=== PATIENT | male | born 1970 | race Caucasian/White ===

== ENCOUNTER 2019-08-12 11:13 | Inpatient (IN) | payer OTHER ==
[~2019-08-12] VITALS: Ht 180.3 cm; Wt 107.5 kg
[2019-08-12 11:13] VITALS: BP_SYST 140
[2019-08-12] MEDS ORDERED: KETOROLAC TROMETHAMINE 30 MG VIAL IVP ONE (11:30)
[2019-08-12] MEDS ORDERED: NACL 0.9% 1,000 ML IV ONE (11:30)
[2019-08-12] MEDS ORDERED: ONDANSETRON HCL 4 MG/2 ML VIAL IVP ONE (12:00)
[2019-08-12] MEDS ORDERED: MORPHINE 4 MG/ML INJ. SYRINGE IVP ONE ×2 (12:00→12:45)
[2019-08-12 12:15] LABS: BASOPHILS % (AUTO) 0.2 % (0.0-2.0); EOSINOPHILS # (AUTO) 0.1 K/uL (0.0-0.4); EOSINOPHILS % (AUTO) 1.1 % (0.0-4.0); HEMATOCRIT 40.5 % (36-54); HEMOGLOBIN 13.7 g/dL (14.0-18.0); LYMPHOCYTES # (AUTO) 1.8 K/uL (1.0-5.5); MEAN CORPUSCULAR HEMOGLOBIN 34 pg (27-31); MEAN CORPUSCULAR HGB CONC 34 % (32-36); MEAN CORPUSCULAR VOLUME 100 fL (79.0-98.0); MONOCYTES # (AUTO) 0.8 K/uL (0.0-1.0); NEUTROPHILS # (AUTO) 3.7 K/uL (1.8-7.7); NEUTROPHILS % (AUTO) 57.7 % (40.0-70.0); PLATELET COUNT (AUTO) 103 K/uL (130-430); RED BLOOD CELL COUNT(AUTO) 4.07 MIL/uL (4.2-6.2); RED CELL DISTRIBUTION WIDTH 13.6 % (9.0-15.0); WHITE BLOOD COUNT (AUTO) 6.4 K/uL (4.8-10.8)
[2019-08-12 12:36] LABS: CALCIUM 8.6 mg/dL (8.4-11.0); CREATININE 1.03 mg/dL (0.55-1.30); POTASSIUM 4.1 mmol/L (3.5-5.1)
[2019-08-12 12:40] LABS: ALBUMIN 3.6 g/dL (3.4-4.8); TOTAL BILIRUBIN 0.6 mg/dL (0.0-1.0)
[2019-08-12] MEDS ORDERED: KETOROLAC TROMETHAMINE 15 MG VIAL IVP ONE (12:45)
[2019-08-12] MEDS ORDERED: NACL 0.9% 1,000 ML IV SCH (14:00)
[2019-08-12] MEDS ORDERED: MORPHINE 4 MG/ML INJ. SYRINGE IVP PRN (14:00)
[2019-08-12] MEDS ORDERED: MUPIROCIN 2% TOPICAL OINTMENT 22 GM NS PRN (14:45)
[2019-08-12] MEDS ORDERED: LORazepam 2 MG/ML VIAL IVP PRN (14:45)
[2019-08-12] MEDS ORDERED: MORPHINE 2 MG/ML INJ. SYRINGE IVP PRN (14:45)
[2019-08-12] MEDS ORDERED: ZOLPIDEM TARTRATE 5 MG TABLET PO PRN (14:45)
[2019-08-12] MEDS ORDERED: ACETAMINOPHEN 325 MG TABLET PO PRN (14:45)
[2019-08-12] MEDS ORDERED: MAGNESIUM SULFATE 50 ML IV PRN (14:45)
[2019-08-12] MEDS ORDERED: POTASSIUM CHLORIDE 20 MEQ TAB.PRT.SR PO PRN (14:45)
[2019-08-12] MEDS ORDERED: ONDANSETRON HCL 4 MG/2 ML VIAL IVP PRN (14:45)
[2019-08-12] MEDS ORDERED: DOCUSATE SODIUM 100 MG CAPSULE PO PRN (14:45)
[2019-08-12] MEDS ORDERED: KETOROLAC TROMETHAMINE 15 MG VIAL IVP PRN (14:45)
[2019-08-12] MEDS ORDERED: FAMO40TA7 PO (14:48)
[2019-08-12 16:30] VITALS: BP_SYST 121
[2019-08-12] MEDS: MORPHINE 2 MG/ML INJ. SYRINGE IVP PRN (16:39)
[2019-08-12 20:00] VITALS: BP_SYST 140
[2019-08-12] MEDS: TAMSULOSIN HCL 0.4 MG CAP PO SCH (21:00)
[2019-08-12] MEDS: HEPARIN SODIUM,PORCINE 5000 UNITS/ML VIAL SUBCUT SCH (21:00)
[2019-08-13] VITALS: BP_SYST 130
[2019-08-13] MEDS: MORPHINE 2 MG/ML INJ. SYRINGE IVP PRN ×2 (03:00→07:24)
[2019-08-13 07:00] VITALS: BP_SYST 121
[2019-08-13 08:00] VITALS: BP_SYST 121
[2019-08-13] MEDS: HEPARIN SODIUM,PORCINE 5000 UNITS/ML VIAL SUBCUT SCH (09:00)
[2019-08-13] MEDS: TAMSULOSIN HCL 0.4 MG CAP PO SCH (09:10)
[2019-08-13] MEDS ORDERED: TAMS-11 PO (09:15)
[2019-08-13] MEDS ORDERED: LEVO500T89 PO (10:08)
[2019-08-13 12:00] VITALS: BP_SYST 110; BP_SYST 121
[2019-08-13] MEDS ORDERED: TRAM100T28 PO (12:10)
== END 2019-08-13 12:45 | disposition home or self-care (01) | DRG 694 ==
LOC: SED 11:13 → SMU 13:49
PROVIDERS: ADMIT General Practice; ATTEND General Practice
DX: N13.2 Hydronephrosis with renal and ureteral calculous obstruction (principal); K21.9 Gastro-esophageal reflux disease without esophagitis; Z60.2 Problems related to living alone; Z79.899 Other long term (current) drug therapy
CPT/HCPCS: 36415; 80053; 85025; 96361; 96374; 96375; 96376; 99285; J1644; J1885; J2060; J2270; J2405; J3475; J7030